=== PATIENT | female | born 1980 | race African-American/Black ===

== ENCOUNTER 2017-02-19 21:21 | Emergency (ER) | payer MEDICAID ==
[~2017-02-19] VITALS: Ht 162.6 cm; Wt 72.6 kg
[2017-02-19 21:49] VITALS: BP 168/95
[2017-02-19] MEDS ORDERED: BENADRYL25 MG ORAL (21:59)
[2017-02-19 22:30] VITALS: BP 168/95
--- NOTE | 2017-02-19 22:43 | Emergency Room Report ---
History of Present Illness General Chief Complaint: Skin Rash/Abscess Source: Patient Present Illness HPI Patient presents with family complaints of possible insect bites Patient has had itching in her nostril Her legs and her back area Patient also complained of areas involving the foot Patient denies any chest pain or shortness of breath denies any back or flank pain She is living in the same location for the past 2 years She feels her symptoms have started for the past 2 days She feels that she is affected more than the children Allergies: Coded Allergies: No Known Allergies (Unverified , 02/19/17) Patient History Past Medical History: see triage record Pertinent Family History: none Last Menstrual Period: feb 04 Now: No Reviewed Nursing Documentation: PMH: Agreed, PSxH: Agreed Nursing Documentation-PMH Past Medical History: No History, Except For Hx Cancer: Yes - uterine cx jan 2017 Review of Systems All Other Systems: negative except mentioned in HPI Physical Exam Vital Signs Date Time Temp Pulse Resp B/P (MAP) Pulse Ox O2 Delivery O2 Flow Rate FiO2 02/19/17 21:39 98.1 76 16 168/95 100 Room Air Sp02 EP Interpretation: reviewed, normal General Appearance: well appearing, no apparent distress Head: normocephalic, atraumatic Eyes: bilateral eye PERRL, bilateral eye EOMI ENT: normal pharynx Neck: supple, thyroid normal Respiratory: lungs clear Cardiovascular #1: regular rate, rhythm, no edema Gastrointestinal: non tender, soft Musculoskeletal: normal inspection Neurologic: alert, oriented x3, responsive Skin: other - Several areas of possible insect bite involving the right inner thigh, upper back area, left foot, small raised erythematous lesion with a scab formation centrally, no signs of any flaring no signs of any abscess Lymphatic: no adenopathy Medical Decision Making Diagnostic Impression: Primary Impression: insect bite ER Course Patient has a nonspecific dermatitis which appears to be in line with likely insect bite Was not able to provide the patient with specifics of the insect or the source However the areas do not appear infected does not appear to be a systemic pathology and the patient was stable for symptomatic treatment and close followup Last Vital Signs Date Time Temp Pulse Resp B/P (MAP) Pulse Ox O2 Delivery O2 Flow Rate FiO2 02/19/17 21:39 98.1 76 16 168/95 100 Room Air Status: unchanged Disposition: HOME, SELF-CARE Condition: Stable Scripts Diphenhydramine Hcl* (BENADRYL*) 25 Mg Capsule 25 MG ORAL Q6H Y for Itching, #20 CAP Prov: WOLF HINES D.O. 02/19/17 Patient Instructions: Insect Bite, [id number] Additional Instructions: Patient is provided with the discharge instructions notified to follow up with primary doctor in the next 2-3 days otherwise return to the er with any worsening symptoms. Please note that this report is being documented using [employer] technology. This can lead to erroneous entry secondary to incorrect interpretation by the dictating instrument. WOLF HINES D.O. Feb 19, 2017 22:43
== END 2017-02-20 00:08 | disposition home or self-care (01) ==
LOC: EMR 02-20 00:08
DX: S00.36XA Insect bite (nonvenomous) of nose, initial encounter (principal); S70.361A Insect bite (nonvenomous), right thigh, initial encounter; S20.469A Insect bite (nonvenomous) of unspecified back wall of thorax, initial encounter; S90.862A Insect bite (nonvenomous), left foot, initial encounter; W57.XXXA Bitten or stung by nonvenomous insect and other nonvenomous arthropods, initial encounter
CPT/HCPCS: 99283

== ENCOUNTER 2017-10-08 01:48 | Emergency (ER) | payer MEDICAID ==
[~2017-10-08] VITALS: Ht 160 cm; Wt 76.2 kg
[~2017-10-08 01:48] MED LIST: BENADRYL25 MG ORAL
[2017-10-08 02:09] VITALS: BP 170/102
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
[2017-10-08] MEDS ORDERED: Tetanus/Diptheria/Pertussis Vaccine 0.5ml Syr IM ONE (02:30)
[2017-10-08] MEDS ORDERED: IBUPROFEN600 MG ORAL (02:50)
== END 2017-10-08 03:06 | disposition home or self-care (01) ==
LOC: EMR 02:24
DX: S60.511A Abrasion of right hand, initial encounter (principal); S60.418A Abrasion of other finger, initial encounter; S80.812A Abrasion, left lower leg, initial encounter; W22.8XXA Striking against or struck by other objects, initial encounter; X99.9XXA Assault by unspecified sharp object, initial encounter; Y92.89 Other specified places as the place of occurrence of the external cause; Z23 Encounter for immunization; D57.1 Sickle-cell disease without crisis; Z85.42 Personal history of malignant neoplasm of other parts of uterus
CPT/HCPCS: 90471; 90715; 96372; 99283

== ENCOUNTER 2017-10-08 23:21 | Emergency (ER) | payer MEDICAID ==
[~2017-10-08] VITALS: Ht 160 cm; Wt 77.1 kg
[~2017-10-08 23:21] MED LIST changes: +IBUPROFEN600 MG ORAL
[2017-10-09] VITALS: BP 182/108
[2017-10-09 01:00] VITALS: BP 182/108
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
== END 2017-10-09 01:00 | disposition home or self-care (01) ==
LOC: EMR 23:57
DX: F22 Delusional disorders (principal); F15.10 Other stimulant abuse, uncomplicated; I10 Essential (primary) hypertension; Z85.42 Personal history of malignant neoplasm of other parts of uterus; F17.200 Nicotine dependence, unspecified, uncomplicated
CPT/HCPCS: 80307; 99283